=== PATIENT | male | born 1965 | race Caucasian/White ===

== ENCOUNTER → 2017-04-25 | Outpatient (CLI) | payer OTHER ==
[~2017-04-25] MED LIST: B-COCAP2 PO; IBUP-1050 PO
--- NOTE | 2017-04-25 14:48 | DIAGNOSTIC IMAGING REPORT ---
RIGHT KNEE 3 VIEWS HISTORY: Right knee pain Right COMPARISON: None. FINDINGS: There is no fracture or dislocation. Subtle chondrocalcinosis. Suspect a trace knee effusion. No intra-articular loose bodies. No radiopaque foreign bodies. IMPRESSION: 1. No acute fracture or dislocation within the right knee. 2. Trace knee effusion. 3. Mild chondrocalcinosis. Electronically signed by: Carlos Rhodes M.D. 04/25/2017 2:46 PM Dictated Date/Time: 04/25/2017 2:45 PM
--- NOTE | 2017-04-25 14:52 | DIAGNOSTIC IMAGING REPORT ---
LEFT WRIST MIN 3 VIEWS ROUTINE, LEFT HAND MIN 3 VIEWS ROUTINE CLINICAL HISTORY: L THUMB PAIN, L WRIST PAIN, R KNEE PAIN COMPARISON STUDY: None. FINDINGS: No acute fracture or dislocation. Soft tissues are unremarkable. Partially amputation at the distal tuft of the left third finger. Moderate to severe cartilage space narrowing with subchondral sclerosis and marginal osteophytes at the first carpometacarpal joint. There is mild radial subluxation of up to 3 mm at the first carpometacarpal joint. There are few intra-articular loose bodies at this location. These findings are likely related to long-standing degenerative change and/or old trauma. No erosions identified. The scaphoid appears intact.. IMPRESSION: 1. No acute fracture or dislocation within the left hand or left wrist. 2. Moderate to severe osteoarthritis at the first carpometacarpal joint with mild radial subluxation and a few small intra-articular loose bodies. This could be due to long-standing degenerative change and/or old trauma. Electronically signed by: Carlos Rhodes M.D. 04/25/2017 2:51 PM Dictated Date/Time: 04/25/2017 2:47 PM
== END | disposition home or self-care (01) ==
LOC: C.RAD 14:11
PROVIDERS: ATTEND Family Medicine
DX: M11.261 Other chondrocalcinosis, right knee (principal); M18.12 Unilateral primary osteoarthritis of first carpometacarpal joint, left hand

== ENCOUNTER → 2017-05-01 | Outpatient (CLI) | payer OTHER ==
--- NOTE | 2017-05-01 12:06 | DIAGNOSTIC IMAGING REPORT ---
MRI OF THE RIGHT KNEE CLINICAL HISTORY: Right knee pain. Injury 3 weeks ago. COMPARISON STUDY: Radiograph the right knee dated 04/25/2017. TECHNIQUE: MRI of the right knee was performed utilizing proton density, T1, and T2-weighted sequences in the axial, sagittal, coronal planes. IV contrast was not administered for this examination. FINDINGS: Menisci: There is a large oblique tear involving the body and posterior horn of the medial meniscus. The lateral meniscus is intact. Ligaments: The anterior cruciate ligament appears mildly thickened with surrounding edema. The fibers appear intact. A strain/partial thickness tear is on excluded. The posterior cruciate ligament is preserved. The medial and lateral collateral ligaments are within normal limits. Extensor mechanism: The extensor mechanism is intact. Hoffa's fat pad is normal in appearance. Articular cartilage and bone: There is mild compromise patella with foci of greater than 50% fissuring along the lateral patellar facet. There is mild reactive subchondral marrow edema. Foci of less than 50% thickness measuring are seen within the medial facet. There is a mild degenerative thinning of the articular cartilage along the weightbearing surface of the medial and lateral compartments. There is no MRI evidence of fracture. No bony contusion is seen. There are tiny marginal osteophytes. Joint effusion: There is trace joint effusion. Soft tissues: The musculature surrounding the knee joint is normal in bulk and signal intensity. IMPRESSION: 1. There is a large oblique tear involving the body and posterior horn of the medial meniscus. 2. There is edema around the anterior cruciate ligament with questioned strain/partial tear versus normal variant. The fibers appear intact and there is no corresponding bony contusion. 3. The lateral meniscus, the posterior cruciate ligament, and the collateral ligament are preserved. 4. Small joint effusion. 5. Mild chondromalacia patella. Electronically signed by: Osbaldo Christensen M.D. 05/01/2017 12:05 PM Dictated Date/Time: 05/01/2017 11:58 AM
== END | disposition home or self-care (01) ==
LOC: C.MRI 10:55
PROVIDERS: ATTEND Physician Assistant
DX: S83.241A Other tear of medial meniscus, current injury, right knee, initial encounter (principal); R60.0 Localized edema; M25.461 Effusion, right knee; X58.XXXA Exposure to other specified factors, initial encounter

== ENCOUNTER → 2017-05-06 | Outpatient (CLI) | payer OTHER | END | disposition home or self-care (01) | LOC: C.CPL 08:04 | PROVIDERS: ATTEND Physician Assistant Medical | DX: Z01.810 Encounter for preprocedural cardiovascular examination (principal) ==

== ENCOUNTER → 2017-12-12 | Outpatient (CLI) | payer OTHER ==
[2017-12-12 13:19] LABS: BASO % 0.2 %; BASO ABS # 0.01 K/uL (0-0.2); EOS % 1.7 %; EOS ABS # 0.11 K/uL (0-0.5); HEMATOCRIT 47.6 % (42-52); HEMOGLOBIN 16.2 g/dL (14.0-18.0); IG# 0.01 K/uL (0.00-0.02); LYMPH ABS # 1.46 K/uL (1.2-3.4); MEAN CELL VOLUME 84.8 fL (80-100); MEAN CORPUSCULAR HEMOGLOBIN 28.9 pg (25-34); MONO % 9.9 %; MONO ABS # 0.63 K/uL (0.11-0.59); NEUT ABS # 4.13 K/uL (1.4-6.5); PLATELET COUNT 238 K/uL (130-400); RED CELL DISTRIBUTION WIDTH CV 14.5 % (11.5-14.5); RED CELL DISTRIBUTION WIDTH SD 44.9 fL (36.4-46.3); WHITE BLOOD COUNT 6.35 K/uL (4.8-10.8)
[2017-12-12 14:08] LABS: BLOOD UREA NITROGEN 15 mg/dl (7-18); CALCIUM 9.6 mg/dl (8.5-10.1); CARBON DIOXIDE 31 mmol/L (21-32); CREATININE 1.17 mg/dl (0.60-1.40); GLUCOSE 77 mg/dl (70-99); POTASSIUM 4.4 mmol/L (3.5-5.1); SODIUM 137 mmol/L (136-145)
[2017-12-12 14:19] LABS: CHOLESTEROL 198 mg/dl (0-200); LDL CHOLESTEROL CALCULATED 114 mg/dl
== END | disposition home or self-care (01) ==
LOC: C.LABMFLN 08:35
PROVIDERS: ATTEND Family Medicine
DX: I10 Essential (primary) hypertension (principal); R00.2 Palpitations; Z13.220 Encounter for screening for lipoid disorders; Z12.5 Encounter for screening for malignant neoplasm of prostate; R07.89 Other chest pain

== ENCOUNTER → 2017-12-24 | Outpatient (CLI) | payer OTHER ==
--- NOTE | 2017-12-24 21:00 | ECHOCARDIOGRAM REPORT ---
*NOTICE TO RECEIVING CONSTITUTION PARTY AGENCY This information is strictly Confidential and protected under [place] law. [place] law prohibits you from making any further disclosure of this information unless further disclosure is expressly permitted by the written consent of the person to whom it pertains or is authorized by law. A general authorization for the release of medical or other information is not sufficient for this purpose. Hospital accepts no responsibility if the information is made available to any other person, INCLUDING THE PATIENT. Interpretation Summary * Name: JOSE ALEJANDRO CAMP Study Date: 12/24/2017 09:15 AM BP: 134/70 mmHg * Patient Location: [facility] HR: 67 * : 1965 (M/d/yyyy) Gender: Male Height: 70 in * Age: 52 yrs Ethnicity: [place] Weight: 196 lb * Ordering Physician: Osbaldo Parr * Referring Physician: Osbaldo Parr * Performed By: Marie De La Garza RDCS * * Reason For Study: HTN, CHEST DISCOMFORT, PALPITATIONS * BSA: 2.1 m2 * -- Conclusions -- * 1. Mildly dilated left ventricle with normal systolic function. EF 60-65%. No regional wall motion abnormalities. Mild concentric left ventricular hypertrophy. No significant diastolic dysfunction. * 2. No significant valvular abnormalities visualized. * 3. No prior study available for comparison. Procedure Details * A complete two-dimensional transthoracic echocardiogram was performed (2D, M-mode, Doppler and color flow Doppler). * Stress echo images were taken, however were not available for review, as they were not saved. Dr. Parr was notified. He was satisfied with echo imaging and exercise stress ECG without stress echo imaging, and therefore stress echo imaging was not repeated. Left Ventricle * Mildly dilated left ventricle with normal systolic function. EF 60-65%. No regional wall motion abnormalities. Mild concentric left ventricular hypertrophy. No significant diastolic dysfunction. Right Ventricle * Borderline right ventricular enlargement. * The right ventricular systolic function is normal as assessed by tricuspid annular plane systolic excursion (TAPSE) (normal >1.5 cm). Atria * The left atrial size is normal. * Right atrial size is normal. * Possible PFO. Mitral Valve * The mitral valve leaflets appear normal. There is no evidence of stenosis, fluttering, or prolapse. * Significant mitral regurgitation is absent. Tricuspid Valve * The tricuspid valve is not well visualized, but is grossly normal. * There is no tricuspid stenosis. * Significant tricuspid regurgitation is absent. Aortic Valve * The aortic valve is normal in structure and function. * The aortic valve is trileaflet. * No hemodynamically significant valvular aortic stenosis. * No aortic regurgitation is present. Pulmonic Valve * The pulmonary valve is inadequately visualized, but the Doppler data is adequate for interpretation. * There is no pulmonic valvular stenosis. * Trace pulmonic valvular regurgitation. Great Vessels * The aortic root is normal size. * Ascending aorta of normal dimension * Normal pulmonary venous flow pattern. Pericardium/Pleural * There is no pericardial effusion. Great Vessels * Normal inferior vena cava size and collapsability with sniff indicates a normal right atrial pressure of 3 mmHg MMode 2D Measurements and Calculations IVSd 1.2 cm IVSs 1.9 cm LVIDd 5.3 cm LVIDs 3.5 cm LVPWd 1.2 cm LVPWs 1.5 cm IVS/LVPW 1.0 FS 34.5 % EDV(Teich) 137.7 ml ESV(Teich) 50.7 ml EF(Teich) 63.2 % EDV(cubed) 152.3 ml ESV(cubed) 42.7 ml EF(cubed) 71.9 % % IVS thick 54.8 % % LVPW thick 29.5 % LV mass(C)d 254.6 grams LV mass(C)dI 123.0 grams/m\S\2 LV mass(C)s 234.0 grams LV mass(C)sI 113.1 grams/m\S\2 SV(Teich) 87.0 ml SI(Teich) 42.0 ml/m\S\2 SV(cubed) 109.5 ml SI(cubed) 52.9 ml/m\S\2 Ao root diam 3.4 cm Ao root area 9.3 cm\S\2 ACS 2.0 cm LA dimension 3.8 cm asc Aorta Diam 3.0 cm LA/Ao 1.1 LVOT diam 2.2 cm LVOT area 3.8 cm\S\2 LVAd ap4 32.1 cm\S\2 LVLd ap4 8.0 cm EDV(MOD-sp4) 107.9 ml EDV(sp4-el) 110.0 ml LVAs ap4 16.4 cm\S\2 LVLs ap4 5.8 cm ESV(MOD-sp4) 39.6 ml ESV(sp4-el) 39.8 ml EF(MOD-sp4) 63.3 % EF(sp4-el) 63.8 % LVAd ap2 35.4 cm\S\2 LVLd ap2 8.4 cm EDV(MOD-sp2) 125.3 ml EDV(sp2-el) 126.5 ml LVAs ap2 18.7 cm\S\2 LVLs ap2 6.7 cm ESV(MOD-sp2) 44.3 ml ESV(sp2-el) 44.4 ml EF(MOD-sp2) 64.7 % EF(sp2-el) 64.9 % LVLd %diff 5.5 % EDV(MOD-bp) 120.1 ml LVLs %diff 13.9 % ESV(MOD-bp) 44.5 ml EF(MOD-bp) 63.0 % SV(MOD-sp4) 68.3 ml SI(MOD-sp4) 33.0 ml/m\S\2 SV(MOD-sp2) 81.0 ml SI(MOD-sp2) 39.1 ml/m\S\2 SV(MOD-bp) 75.6 ml SI(MOD-bp) 36.5 ml/m\S\2 SV(sp4-el) 70.2 ml SI(sp4-el) 33.9 ml/m\S\2 SV(sp2-el) 82.1 ml SI(sp2-el) 39.7 ml/m\S\2 Doppler Measurements and Calculations MV E max michelle 80.9 cm/sec MV A max michelle 69.6 cm/sec MV E/A 1.2 MV dec time 0.20 sec Ao V2 max 119.1 cm/sec Ao max PG 5.7 mmHg Ao max PG (full) 1.1 mmHg LESLEY(V,A) 3.4 cm\S\2 LESLEY(V,D) 3.4 cm\S\2 LV V1 max PG 4.6 mmHg LV V1 max 106.8 cm/sec PA V2 max 66.3 cm/sec PA max PG 1.8 mmHg
--- NOTE | 2017-12-24 21:03 | Exercise Stress Test Report ---
Exercise Stress Test Report Exercise Stress Test Report Date of Service: 12/24/2017 Exercise Stress Test Report Procedure: 1. Exercise stress ECG Protocol: 1. Standard Rafa protocol Indications: 1. Hypertension 2. Palpitations/PVCs Resting ECG: Sinus rhythm 72 bpm. Normal ECG. Exercise ECG: No significant ST changes. Occasional PVCs. No arrhythmia. Peak heart rate: 155 bpm, representing 91% MPHR. Resting blood pressure: 134/70mmHg Maximum blood pressure: 191/78mmHg METS: 11.7 Details: Patient exercised via standard Rafa protocol for a total of 10 minutes. Appropriate blood pressure response to exercise. No chest pain reported. Good exercise tolerance. Impression: 1. Negative exercise ECG for ischemia at 91% MPHR. 2. No chest pain reported. 3. Appropriate blood pressure response to exercise. 4. No arrhythmia. Occasional PVCs. 5. Good exercise tolerance.
== END | disposition home or self-care (01) ==
LOC: C.CPL 09:08
PROVIDERS: ATTEND Family Medicine
DX: I10 Essential (primary) hypertension (principal); R00.2 Palpitations; R07.89 Other chest pain